=== PATIENT | female | born 1985 | race African-American/Black ===

== ENCOUNTER 2016-12-16 16:54 | Emergency (ER) | payer MEDICAID ==
--- NOTE | 2016-12-16 17:16 | EDM.PDOC ---
ED HPI ENT - General Stated Complaint: PT LT SIDE OF FACE SWOLLEN Time Seen by Provider: 12/16/16 17:03 - History of Present Illness INITIAL COMMENTS - FREE TEXT/NARRATIVE: History of present illness: [31-year-old female presents with three-day history of sinus headache, toothache , left ear pain. He tried [id number] sinus congestion without any relief. Does not have any nausea, vomiting fever chills sore throat, abdominal pain, n/v /d, dizziness, syncope or other pertinent symptoms. ] Review of systems: As per history of present illness and below otherwise all systems reviewed and negative. Past medical history: As per history of present illness and as reviewed below otherwise noncontributory. Surgical history: As per history of present illness and as reviewed below otherwise noncontributory. Social history: No reported history of drug or alcohol abuse. Family history: As per history of present illness and as reviewed below otherwise noncontributory. Physical exam: General: Well developed, well nourished in NAD HEENT: Atraumatic, normocephalic, pupils reactive, negative for conjunctival pallor or scleral icterus, mucous membranes moist, throat clear, neck supple, nontender, trachea midline. Frontal left sinus tenderness. Bilateral TM clear. Lungs: Clear to auscultation, breath sounds equal bilaterally, chest nontender. Heart: S1S2, regular, negative for clicks, rubs, or JVD. Abdomen: Soft, nondistended, nontender. Negative for masses or hepatosplenomegaly. Negative for costovertebral tenderness. Pelvis: Stable nontender. Genitourinary: Deferred. Rectal: Deferred. Extremities: Atraumatic, negative for cords or calf pain. Neurovascular unremarkable. Neuro: Awake, alert, oriented. Cranial nerves II through XII unremarkable. Cerebellum unremarkable. Motor and sensory unremarkable throughout. Exam nonfocal. Diagnostics: [] Therapeutics: [rocephin 1 gram IM x 1 ] Impression: [Sinusitis] Plan: Flonase, augmentin, mucinex follow up with PCP.] Definitive disposition and diagnosis as appropriate pending reevaluation and review of above. - Related Data Allergies/ADRs: Allergies Allergy/AdvReac Type Severity Reaction Status Date / Time No Known Allergies Allergy Verified 12/16/16 17:24 Home Meds: Home Meds Hydrochlorothiazide 1 tab PO DAILY 12/16/16 [History] ED ROS ENT - Review of Systems Review Of Systems: See Below (The history of present illness) ED EXAM, ENT - Physical Exam Exam: See Below (The history of present illness) Course - Vital Signs Last Recorded V/S: Last Vital Signs Temp 97.6 F 12/16/16 17:22 Pulse 67 12/16/16 17:22 Resp 18 12/16/16 17:22 BP 156/91 H 12/16/16 17:22 Pulse Ox 95 12/16/16 17:22 - Orders/Labs/Meds Orders: Active Orders 24 hr Category Date Time Status cefTRIAXone [Rocephin] 1,000 mg Med 12/16/16 17:50 Ordered Lidocaine 1% [Xylocaine-MPF 1%] 4 ml IM ONETIME Medication Orders Ceftriaxone Sodium 1,000 mg/ (Lidocaine HCl) 4 mls @ 4 mls/sec IM ONETIME ONE Stop: 12/16/16 17:51 Meds: Medications Generic Name Dose Route Start Last Admin Trade Name Lissette PRN Reason Stop Dose Admin Ceftriaxone Sodium 1,000 mg/ 4 mls @ 4 mls/sec 12/16/16 17:50 Lidocaine HCl IM 12/16/16 17:51 ONETIME ONE Departure - Departure Time of Disposition: 17:52 Disposition: Home, Self-Care 01 Condition: good Clinical Impression: Sinusitis Referrals: PCP,None [Primary Care Provider] - Additional Instructions: The following information is given to patients seen in the emergency department who are being discharged to home. This information is to outline your options for follow-up care. We provide all patients seen in our emergency department with a follow-up referral. The need for follow-up, as well as the timing and circumstances, are variable depending upon the specifics of your emergency department visit. If you don't have a primary care physician on staff, we will provide you with a referral. We always advise you to contact your personal physician following an emergency department visit to inform them of the circumstance of the visit and for follow-up with them and/or the need for any referrals to a consulting specialist. The emergency department will also refer you to a specialist when appropriate. This referral assures that you have the opportunity for follow-up care with a specialist. All of these measure are taken in an effort to provide you with optimal care, which includes your follow-up. Under all circumstances we always encourage you to contact your private physician who remains a resource for coordinating your care. When calling for follow-up care, please make the office aware that this follow-up is from your recent emergency room visit. If for any reason you are refused follow-up, please contact the [facility] Emergency Department at and asked to speak to the emergency department charge nurse. - My Orders Last 24 Hours: My Active Orders 12/16/16 17:50 cefTRIAXone [Rocephin] 1,000 mg Lidocaine 1% [Xylocaine-MPF 1%] 4 ml IM ONETIME - Assessment/Plan Last 24 Hours: My Active Orders 12/16/16 17:50 cefTRIAXone [Rocephin] 1,000 mg Lidocaine 1% [Xylocaine-MPF 1%] 4 ml IM ONETIME
[2016-12-16] MEDS ORDERED: cefTRIAXone 1,000 MG in Lidocaine 1% 4 ML IM ONE (17:50)
[2016-12-16 18:45] VITALS: BP 138/90
== END 2016-12-16 18:31 | disposition home or self-care (01) ==
LOC: MW.ED 16:54
DX: J32.9 Chronic sinusitis, unspecified (principal)
CPT/HCPCS: 96372; 99283; J0696

== ENCOUNTER 2016-12-20 07:57 | Emergency (ER) | payer MEDICAID ==
[2016-12-20] MEDS ORDERED: predniSONE 20 MG Tab PO ONE (08:40)
[2016-12-20] MEDS ORDERED: Ketorolac 60 MG/2 ML SDV IM ONE (08:40)
--- NOTE | 2016-12-20 09:20 | EDM.PDOC ---
ED HPI GENERAL MEDICAL PROBLEM - General Chief Complaint: General Stated Complaint: PAIN ON LEFT SIDE OF THE FACE Time Seen by Provider: 12/20/16 08:10 Source of Information: Reports: Patient History Limitations: Reports: No limitations - History of Present Illness INITIAL COMMENTS - FREE TEXT/NARRATIVE: HISTORY AND PHYSICAL: History of present illness: [31-year-old female with a past medical history of hypertension recently seen by Dr. Wyatt complaining of left facial pain. It was felt that the patient had left sided sinusitis and she was prescribed Augmentin., With which she has been compliant. Patient complains of persistent pain in the left base. She has no specific identifiable point tenderness. She states is not worse when she moves her jaw. Pain is not under her chin. She has no intraoral pain or tenderness the pain and tenderness is not in her left for head in the temporal artery distribution. Patient denies earache or headache. No fevers chills sweats or shaking chills. No nasal discharge or ear drainage. Patient has never had a chronic facial pain syndrome or herpes zoster Review of systems: As per history of present illness and below otherwise all systems reviewed and negative. Past medical history: As per history of present illness and as reviewed below otherwise noncontributory. Surgical history: As per history of present illness and as reviewed below otherwise noncontributory. Social history: No reported history of drug or alcohol abuse. Family history: As per history of present illness and as reviewed below otherwise noncontributory. Physical exam: Nontender TMJ. Nontender mastoid with normal pinnae EAC and TM. Nontender parotid and submandibular glands. No intraoral abnormality. While patient complains of pain in the left base there is no identifiable point tenderness. No facial or anterior cervical adenopathy HEENT: Atraumatic, normocephalic, pupils reactive, negative for conjunctival pallor or scleral icterus, mucous membranes moist, throat clear, neck supple, nontender, trachea midline. Lungs: Clear to auscultation, breath sounds equal bilaterally, chest nontender. Heart: S1S2, regular, negative for clicks, rubs, or JVD. Abdomen: Soft, nondistended, nontender. Negative for masses or hepatosplenomegaly. Negative for costovertebral tenderness. Pelvis: Stable nontender. Genitourinary: Deferred. Rectal: Deferred. Extremities: Atraumatic, negative for cords or calf pain. Neurovascular unremarkable. Neuro: Awake, alert, oriented. Cranial nerves II through XII unremarkable. Cerebellum unremarkable. Motor and sensory unremarkable throughout. Exam nonfocal. Diagnostics: [] Therapeutics: [] Impression: [] Plan: [Etiology of patient's pain is unclear. It is nonspecific left facial pain discussed with patient possibility of zoster prodrome. Also discussed the stability of evolving trigeminal neuralgia. Patient does not have temporal artery tenderness nor is her TMJ tender. No dental tenderness or visible intraoral abnormality patient is well-appearing in general and has a nonfocal exam. Supple neck with normal painless range of motion of the C-spine. Patient has no infectious prodrome. I discussed with her the use of NSAIDs and Tylenol as needed as well as recommending a short course of prednisone which may help. Patient agrees with this regimen and is aware of critical importance of close followup with her primary care Dr. No further workup or treatment indicated at this time. Patient agrees with outpatient followup and strict return precautions given Definitive disposition and diagnosis as appropriate pending reevaluation and review of above. 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 Left sided facial Pain Score (Numeric/FACES): 10 - Related Data Allergies Allergy/AdvReac Type Severity Reaction Status Date / Time No Known Allergies Allergy Verified 12/20/16 08:08 Home Meds: Home Meds Hydrochlorothiazide 12.5 mg PO DAILY 12/16/16 [History] Amoxicillin/Potassium Clav [Augmentin 875-125 Tablet] 1 each PO BID 12/20/16 [ History] Prednisone [IMW: predniSONE] 60 mg PO WITHBREAKFAST #21 tab 12/20/16 [Rx] Past Medical History - Past Health History Medical/Surgical History: Denies Medical/Surgical History HEENT History: Reports: None Cardiovascular History: Reports: Hypertension Respiratory History: Reports: None Gastrointestinal History: Reports: None Genitourinary History: Reports: None 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: 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 History: Reports: None Neurological History: Reports: None Psychiatric History: Reports: None Endocrine/Metabolic History: Reports: None Hematologic History: Reports: None Immunologic History: Reports: None Oncologic (Cancer) History: Reports: None Dermatologic History: Reports: None - Infectious Disease History Infectious Disease History: Reports: None - Past Surgical History Head Surgeries/Procedures: Reports: None HEENT Surgical History: Reports: None Cardiovascular Surgical History: Reports: None Respiratory Surgical History: Reports: None GI Surgical History: Reports: None Female Surgical History: Reports: None Endocrine Surgical History: Reports: None Neurological Surgical History: Reports: None 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 Surgical History: Reports: None Dermatological Surgical History: Reports: None Social & Family History - Family History Family Medical History: Noncontributory - Tobacco Use Smoking Status *Q: Never Smoker Second Hand Smoke Exposure: No - Caffeine Use Caffeine Use: Reports: None - Recreational Drug Use Recreational Drug Use: No ED ROS GENERAL - Review of Systems Review Of Systems: See Below (Per history of present illness) ED EXAM, GENERAL - Physical Exam Exam: See Below (Per history of present illness) Course - Vital Signs Last Recorded V/S: Last Vital Signs Temp 36.4 C 12/20/16 08:05 Pulse 78 12/20/16 09:23 Resp 16 12/20/16 09:23 BP 122/70 12/20/16 09:23 Pulse Ox 99 12/20/16 09:23 - Orders/Labs/Meds Orders: Active Orders 24 hr Category Date Time Status EKG 12 Lead [EKG Documentation Completion] [RC] STAT Care 12/20/16 09:15 Active Meds: Medications Discontinued Medications Generic Name Dose Route Start Last Admin Trade Name Freq PRN Reason Stop Dose Admin Ketorolac Tromethamine 60 mg 12/20/16 08:40 12/20/16 08:46 Toradol IM 12/20/16 08:41 60 mg ONETIME ONE Administration Prednisone 60 mg 12/20/16 08:40 12/20/16 08:47 Prednisone PO 12/20/16 08:41 60 mg ONETIME ONE Administration Departure - Departure Time of Disposition: 09:12 Disposition: Home, Self-Care 01 Condition: good Clinical Impression: Acute facial pain Prescriptions: Prednisone [IMW: predniSONE] 60 mg PO WITHBREAKFAST #21 tab Instructions: Medical Screening Exam Referrals: PCP,None [Primary Care Provider] - Forms: ED Department Discharge Additional Instructions: The following information is given to patients seen in the emergency department who are being discharged to home. This information is to outline your options for follow-up care. We provide all patients seen in our emergency department with a follow-up referral. The need for follow-up, as well as the timing and circumstances, are variable depending upon the specifics of your emergency department visit. If you don't have a primary care physician on staff, we will provide you with a referral. We always advise you to contact your personal physician following an emergency department visit to inform them of the circumstance of the visit and for follow-up with them and/or the need for any referrals to a consulting specialist. The emergency department will also refer you to a specialist when appropriate. This referral assures that you have the opportunity for follow-up care with a specialist. All of these measure are taken in an effort to provide you with optimal care, which includes your follow-up. Under all circumstances we always encourage you to contact your private physician who remains a resource for coordinating your care. When calling for follow-up care, please make the office aware that this follow-up is from your recent emergency room visit. If for any reason you are refused follow-up, please contact the [facility] Emergency Department at and asked to speak to the emergency department charge nurse. Is not clear what is causing your facial pain today but your findings do not suggest any bacterial infection. It is always possible to get pain before getting shingles. If in the next day or 2 you have all blisters in the area of your left face him that that would be suggestive of this diagnosis there is also a possibility it could be evolving trigeminal neuralgia which is a chronic pain syndrome originating in the trigeminal nerve that supplies each side of your face. Both of these diagnoses are things regarding which we would not typically observe anything abnormal on your examination. There is also a possibility that your facial pain is from another cause. Take 800 mg of ibuprofen every 6 hours and use [place] at bedtime if necessary for sleep. Follow up with your DrJer at the family practice clinic in 2-3 days for reevaluation and referral possibly to neurology for further workup as needed if your symptoms persist. Return immediately for new severe or worsening symptoms - My Orders Last 24 Hours: My Active Orders 12/20/16 09:15 EKG 12 Lead [EKG Documentation Completion] [RC] STAT - Assessment/Plan Last 24 Hours: My Active Orders 12/20/16 09:15 EKG 12 Lead [EKG Documentation Completion] [RC] STAT
[2016-12-20 09:32] VITALS: BP 122/70
== END 2016-12-20 09:23 | disposition home or self-care (01) ==
LOC: MW.ED 07:57
DX: R51 Headache (principal); I10 Essential (primary) hypertension; Z79.899 Other long term (current) drug therapy
CPT/HCPCS: 93005; 96372; 99283; A9270; J1885

== ENCOUNTER → 2017-01-05 | Outpatient (CLI) | payer MEDICAID ==
[2017-01-05 10:28] LABS: CHLORIDE,CL 107 mmol/L (98-110); SODIUM,NA 140 mmol/L (136-146)
== END ==
LOC: MW.CHFP 09:43
PROVIDERS: ATTEND Nurse Practitioner Family
DX: I10 Essential (primary) hypertension (principal)
CPT/HCPCS: 36415; 80053; 80061

== ENCOUNTER 2017-12-23 20:03 | Emergency (ER) | payer BC, MEDICAID ==
[2017-12-23] MEDS ORDERED: Ondansetron 4 MG/2 ML SDV IVPUSH ONE (20:54)
[2017-12-23] MEDS ORDERED: Lactated Ringers 1,000 ML IV ONE (20:54)
--- NOTE | 2017-12-23 21:02 | EDM.PDOC ---
ED HPI GENERAL MEDICAL PROBLEM - General Chief Complaint: Gastrointestinal Problem Stated Complaint: NAUSEA/DIZZY Time Seen by Provider: 12/23/17 20:45 Source of Information: Reports: Patient History Limitations: Reports: No Limitations - History of Present Illness INITIAL COMMENTS - FREE TEXT/NARRATIVE: HISTORY AND PHYSICAL: History of present illness: [Patient comes to the emergency room complaining of diarrhea and nausea and vomiting. Her symptoms started this morning with several episodes of loose stools. This afternoon she developed vomiting. She's been unable to keep down any food or fluids today. She has not taken any medication for her symptoms. She has not had any fever or chills. She complains of muscle aches and pains to her upper and lower extremities and back. She denies abdominal pain. No burning with urination or hematuria. No blood in stools or emesis. She admits to a headache but she describes it as "slight". Nausea is 10/10. Sent home from work today due to her symptoms. Last episode of vomiting and diarrhea was prior to being seen in the ER.] Review of systems: As per history of present illness and below otherwise all systems reviewed and negative. Past medical history: As per history of present illness and as reviewed below otherwise noncontributory. Surgical history: As per history of present illness and as reviewed below otherwise noncontributory. Social history: No reported history of drug or alcohol abuse. Family history: As per history of present illness and as reviewed below otherwise noncontributory. Physical exam: HEENT: Atraumatic, normocephalic. Oral mucous membranes are mildly dry. Throat is clear, neck supple, no lymphadenopathy. Lungs: Clear to auscultation, breath sounds equal bilaterally. Wheezing crackles or rales. Heart: S1S2, regular rate and rhythm. Abdomen: Sounds are normoactive throughout. Soft, nondistended, nontender. Negative for masses or rebound. Negative for costovertebral tenderness. Pelvis: Stable nontender. Genitourinary: Deferred. Rectal: Deferred. Extremities: Atraumatic, no pain with palpation of her extremities. Neurovascular unremarkable. Neuro: Awake, alert, oriented. Motor and sensory unremarkable throughout. Exam nonfocal. Therapeutics: [1 L LR, Zofran 4 mg IV, Toradol 30mg IV] Impression: [nausea and vomiting] Plan: [Will start fluids and Zofran. Nausea improves considerably with this medication. headache is still at 7 out of 10. Toradol 30 mg given IV. When nausea improves will attempt po challenge. If patient tolerates po, will discharge to home. [facility] Zofran ODT 4 mg#10 sig one by mouth every 8 hours as needed for nausea and vomiting 0 refills. Pt tolerates po and is discharged to home. ] Definitive disposition and diagnosis as appropriate pending reevaluation and review of above. 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: 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 History: Reports: None Neurological History: Reports: None Psychiatric History: Reports: None Endocrine/Metabolic History: Reports: None Hematologic History: Reports: None Immunologic History: Reports: None Oncologic (Cancer) History: Reports: None Dermatologic History: Reports: None - Infectious Disease History Infectious Disease History: Reports: Chicken Pox - Past Surgical History Head Surgeries/Procedures: Reports: None HEENT Surgical History: Reports: None Cardiovascular Surgical History: Reports: None Respiratory Surgical History: Reports: None GI Surgical History: Reports: None Female Surgical History: Reports: None Endocrine Surgical History: Reports: None Neurological Surgical History: Reports: None 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 Surgical History: Reports: None Dermatological Surgical History: Reports: None Social & Family History - Family History Family Medical History: Noncontributory - Tobacco Use Smoking Status *Q: Never Smoker Second Hand Smoke Exposure: No - Caffeine Use Caffeine Use: Reports: Soda - Recreational Drug Use Recreational Drug Use: No ED ROS GENERAL - Review of Systems Review Of Systems: ROS reveals no pertinent complaints other than HPI. ED EXAM, GI/ABD - Physical Exam Exam: See Below Course - Vital Signs Last Recorded V/S: Last Vital Signs Temp 98.3 F 12/23/17 22:27 Pulse 107 H 12/23/17 22:27 Resp 18 12/23/17 22:27 BP 151/81 H 12/23/17 22:27 Pulse Ox 100 12/23/17 22:27 - Orders/Labs/Meds Meds: Medications Discontinued Medications Generic Name Dose Route Start Last Admin Trade Name Lissette PRN Reason Stop Dose Admin Lactated Ringer's 1,000 mls @ 999 mls/hr 12/23/17 20:54 12/23/17 21:11 Ringers, Lactated IV 12/23/17 21:54 999 mls/hr .BOLUS ONE Administration Ketorolac Tromethamine 30 mg 12/23/17 21:46 12/23/17 21:58 Toradol IVPUSH 12/23/17 21:47 30 mg ONETIME ONE Administration Ondansetron HCl 4 mg 12/23/17 20:54 12/23/17 21:11 Zofran IVPUSH 12/23/17 20:55 4 mg ONETIME ONE Administration Departure - Departure Time of Disposition: 22:00 Disposition: Home, Self-Care 01 Condition: Good Clinical Impression: Nausea and vomiting in adult - Discharge Information Instructions: Nausea and Vomiting, Adult, [id number] Referrals: Addis Rivera, HAIR MACHINE OPERATOR [Primary Care Provider] - Forms: ED Department Discharge Additional Instructions: The following information is given to patients seen in the emergency department who are being discharged to home. This information is to outline your options for follow-up care. We provide all patients seen in our emergency department with a follow-up referral. The need for follow-up, as well as the timing and circumstances, are variable depending upon the specifics of your emergency department visit. If you don't have a primary care physician on staff, we will provide you with a referral. We always advise you to contact your personal physician following an emergency department visit to inform them of the circumstance of the visit and for follow-up with them and/or the need for any referrals to a consulting specialist. The emergency department will also refer you to a specialist when appropriate. This referral assures that you have the opportunity for follow-up care with a specialist. All of these measure are taken in an effort to provide you with optimal care, which includes your follow-up. Under all circumstances we always encourage you to contact your private physician who remains a resource for coordinating your care. When calling for follow-up care, please make the office aware that this follow-up is from your recent emergency room visit. If for any reason you are refused follow-up, please contact the [facility] emergency department at and asked to speak to the emergency department charge nurse. [facility] [address] [place] [id number] All up with her local primary care provider at the clinic listed above in 48-72 hours. Push fluids, use Zofran as needed for nausea. Return to ER as needed as discussed.
[2017-12-23] MEDS ORDERED: Ketorolac 30 MG/ML SDV IVPUSH ONE (21:46)
[2017-12-24 00:43] VITALS: BP 151/81
== END 2017-12-23 22:27 | disposition home or self-care (01) ==
LOC: MW.ED 20:03
DX: R11.2 Nausea with vomiting, unspecified (principal); R19.7 Diarrhea, unspecified; I10 Essential (primary) hypertension; Z79.899 Other long term (current) drug therapy
CPT/HCPCS: 96365; 96375; 99283; J1885; J2405; J7120

== ENCOUNTER 2018-05-16 19:50 | Emergency (ER) | payer BC ==
--- NOTE | 2018-05-16 20:09 | EDM.PDOC ---
ED HPI GENERAL MEDICAL PROBLEM - General Chief Complaint: Gastrointestinal Problem Stated Complaint: VOMITNG AND DIARRHEA Time Seen by Provider: 05/16/18 20:09 Source of Information: Reports: Patient History Limitations: Reports: No Limitations - History of Present Illness INITIAL COMMENTS - FREE TEXT/NARRATIVE: HISTORY AND PHYSICAL: History of present illness: 33-year-old female presenting to emergency department with chief complained of nausea and vomiting with associated stomach pain 1 day with past medical history of hypertension. Patient states that around noon today she began to have nausea and vomiting. States that she has thrown up approximately 4-5 times. No hematemesis. States she is unable to keep anything down. She has not urinated in 2 days. She also reports associated diarrhea 7 times today no bloody stool or dark tarry stool. She has mild generalized abdominal pain as well as a headache. She has felt feverish with chills but denies any sore throat, cough, chest pain, palpitations , shortness of breath, syncopal episodes, or focal neurologic deficits. She does have a history of hypertension states she has not been able to keep down any of her blood pressure medications. She has no known drug allergies. On exam generalized abdominal pain but exquisite pain in right lower quadrant. Nondistended or rigid. CBC, CMP, UA, lipase, hCG were all unremarkable. CT abdomen and pelvis did show questionable right-sided hydrosalpinx, so a pelvic ultrasound was ordered at 2220 Review of systems: As per history of present illness and below otherwise all systems reviewed and negative. Past medical history: As per history of present illness and as reviewed below otherwise noncontributory. Surgical history: As per history of present illness and as reviewed below otherwise noncontributory. Social history: No reported history of drug or alcohol abuse. Family history: As per history of present illness and as reviewed below otherwise noncontributory. Physical exam: HEENT: Atraumatic, normocephalic, pupils reactive, negative for conjunctival pallor or scleral icterus, mucous membranes moist, throat clear, neck supple, nontender, trachea midline. Lungs: Clear to auscultation, breath sounds equal bilaterally, chest nontender. Heart: S1S2, regular, negative for clicks, rubs, or JVD. Abdomen: Soft, nondistended, generalized abd pain on palp with specific RLQ pain. Negative for masses or hepatosplenomegaly. Negative for costovertebral tenderness. Pelvis: Stable nontender. Genitourinary: Deferred. Rectal: Deferred. Extremities: Atraumatic, negative for cords or calf pain. Neurovascular unremarkable. Neuro: Awake, alert, oriented. Cranial nerves II through XII unremarkable. Cerebellum unremarkable. Motor and sensory unremarkable throughout. Exam nonfocal. Diagnostics: CBC, CMP, UA/UC, lipase, hCG, CT abdomen pelvis, Pelvic US Therapeutics: 1 L normal saline 1, 8 mg Zofran IV 1, 40 meQ KCL IV, 1 L LR IV Impression: Nausea with vomiting Diarrhea Mild dehydration Abdominal pain Hypokalemia most likely secondary to nausea and vomiting Viral gastroenteritis Plan: Please see above H&P. We did order a pelvic ultrasound which was unremarkable and showed no evidence of hydrosalpinx. Patient mostly has viral gastroenteritis and hypokalemia secondary to nausea with vomiting. This was explained to the patient and she was discharged in good condition with a prescription for Zofran to be taken as needed for her nausea and vomiting. She was instructed to follow-up with her primary care provider and return to emergency department if she had any new or worsening symptoms. Definitive disposition and diagnosis as appropriate pending reevaluation and review of above. Lower Abd Pain Score (Numeric/FACES): 10 - Related Data Allergies Allergy/AdvReac Type Severity Reaction Status Date / Time No Known Allergies Allergy Verified 05/16/18 20:05 Home Meds: Home Meds hydroCHLOROthiazide [Hydrochlorothiazide] 12.5 mg PO DAILY 12/16/16 [History] Past Medical History - Past Health History Medical/Surgical History: Denies Medical/Surgical History HEENT History: Reports: None Cardiovascular History: Reports: Hypertension Respiratory History: Reports: None Gastrointestinal History: Reports: None Genitourinary History: Reports: None BRANCHER History: Reports: 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 History: Reports: None Neurological History: Reports: None Psychiatric History: Reports: None Endocrine/Metabolic History: Reports: None Hematologic History: Reports: None Immunologic History: Reports: None Oncologic (Cancer) History: Reports: None Dermatologic History: Reports: None - Infectious Disease History Infectious Disease History: Reports: Chicken Pox - Past Surgical History Head Surgeries/Procedures: Reports: None HEENT Surgical History: Reports: None Cardiovascular Surgical History: Reports: None Respiratory Surgical History: Reports: None GI Surgical History: Reports: None Female Surgical History: Reports: None Endocrine Surgical History: Reports: None Neurological Surgical History: Reports: None 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 Surgical History: Reports: None Dermatological Surgical History: Reports: None Social & Family History - Family History Family Medical History: Noncontributory - Tobacco Use Smoking Status *Q: Never Smoker - Caffeine Use Caffeine Use: Reports: Coffee - Recreational Drug Use Recreational Drug Use: No ED ROS GENERAL - Review of Systems Review Of Systems: ROS reveals no pertinent complaints other than HPI. ED EXAM, GENERAL - Physical Exam Exam: See Below Course - Vital Signs Last Recorded V/S: Last Vital Signs Temp 97.7 F 05/16/18 20:02 Pulse 96 05/16/18 23:37 Resp 18 05/16/18 23:37 BP 139/96 H 05/16/18 23:37 Pulse Ox 98 05/16/18 20:02 - Orders/Labs/Meds Orders: Active Orders 24 hr Category Date Time Status Abdomen Pelvis w Cont [CT] Stat Exams 05/16/18 20:20 Taken Pelvis Non OB Comp [US] Stat Exams 05/16/18 22:21 Taken CULTURE URINE [RM] Stat Lab 05/16/18 20:20 Ordered UA W/MICROSCOPIC [URIN] Stat Lab 05/16/18 20:20 Ordered Potassium Chloride 40 meq Med 05/16/18 22:15 Active Dextrose 5%-0.9% NaCl [Dextrose 5%-Normal Saline] 1,000 ml IV ASDIRECTED Sodium Chloride 0.9% [Saline Flush] Med 05/16/18 20:20 Active 10 ml FLUSH ASDIRECTED PRN Sodium Chloride 0.9% [Saline Flush] Med 05/16/18 20:20 Active 2.5 ml FLUSH ASDIRECTED PRN Sodium Chloride 0.9% [Saline Flush] Med 05/16/18 20:20 Active 2.5 ml FLUSH ASDIRECTED PRN Saline Lock Insert [OM.PC] Stat Oth 05/16/18 20:20 Ordered Medication Orders Potassium Chloride 40 meq/ (Dextrose/Sodium Chloride) 1,020 mls @ 999 mls/hr IV ASDIRECTED TAD Last Admin: 05/16/18 22:15 Dose: 999 mls/hr Sodium Chloride (Saline Flush) 2.5 ml FLUSH ASDIRECTED PRN PRN Reason: Keep Vein Open Sodium Chloride (Saline Flush) 10 ml FLUSH ASDIRECTED PRN PRN Reason: Keep Vein Open Sodium Chloride (Saline Flush) 2.5 ml FLUSH ASDIRECTED PRN PRN Reason: Keep Vein Open Labs: Laboratory Tests 05/16/18 05/16/18 05/16/18 Range/Units 20:10 20:10 20:10 WBC 9.55 (4.0-11.0) K/uL RBC 4.86 (4.30-5.90) M/uL Hgb 11.8 L (12.0-16.0) g/dL Hct 34.7 L (36.0-46.0) % MCV 71.4 L (80.0-98.0) fL MCH 24.3 L (27.0-32.0) pg MCHC 34.0 (31.0-37.0) g/dL RDW Std Deviation 41.9 (28.0-62.0) fl RDW Coeff of Bailee 16 H (11.0-15.0) % Plt Count 338 (150-400) K/uL MPV 9.20 (7.40-12.00) fL Neut % (Auto) 72.0 (48.0-80.0) % Lymph % (Auto) 18.1 (16.0-40.0) % [place] % (Auto) 9.1 (0.0-15.0) % Eos % (Auto) 0.6 (0.0-7.0) % Baso % (Auto) 0.2 (0.0-1.5) % Neut # (Auto) 6.9 H (1.4-5.7) K/uL Lymph # (Auto) 1.7 (0.6-2.4) K/uL [place] # (Auto) 0.9 H (0.0-0.8) K/uL Eos # (Auto) 0.1 (0.0-0.7) K/uL Baso # (Auto) 0.0 (0.0-0.1) K/uL Nucleated RBC % 0.0 /100WBC Nucleated RBCs # 0 K/uL Sodium 138 (136-145) mmol/L Potassium 3.0 L (3.5-5.1) mmol/L Chloride 103 (98-107) mmol/L Carbon Dioxide 27.8 (21.0-32.0) mmol/L BUN 8 (7.0-18.0) mg/dL Creatinine 0.7 (0.6-1.0) mg/dL Est Cr Clr Drug Dosing 84.65 mL/min Estimated GFR (MDRD) > 60.0 ml/min Glucose 88 (74-106) mg/dL Calcium 9.1 (8.5-10.1) mg/dL Total Bilirubin 0.3 (0.2-1.0) mg/dL AST 12 L (15-37) IU/L ALT 14 (14-63) IU/L Alkaline Phosphatase 69 (46-116) U/L Total Protein 8.3 H (6.4-8.2) g/dL Albumin 3.6 (3.4-5.0) g/dL Globulin 4.7 H (2.0-3.5) g/dL Albumin/Globulin Ratio 0.8 L (1.3-2.8) Lipase 126 (73-393) U/L HCG, Qual NEGATIVE (NEG) Meds: Medications Generic Name Dose Route Start Last Admin Trade Name Freq PRN Reason Stop Dose Admin Potassium Chloride 40 meq/ 1,020 mls @ 999 mls/hr 05/16/18 22:15 05/16/18 22: 15 Dextrose/Sodium Chloride IV 999 mls/hr ASDIRECTED TAD Administration Sodium Chloride 2.5 ml 05/16/18 20:20 Saline Flush FLUSH ASDIRECTED PRN Keep Vein Open Sodium Chloride 10 ml 05/16/18 20:20 Saline Flush FLUSH ASDIRECTED PRN Keep Vein Open Sodium Chloride 2.5 ml 05/16/18 20:20 Saline Flush FLUSH ASDIRECTED PRN Keep Vein Open Discontinued Medications Generic Name Dose Route Start Last Admin Trade Name Freq PRN Reason Stop Dose Admin Sodium Chloride 1,000 mls @ 999 mls/hr 05/16/18 20:20 05/16/18 20:28 Normal Saline IV 05/16/18 21:20 999 mls/hr BOLUS ONE Administration Iopamidol 100 ml 05/16/18 21:43 05/16/18 21:44 Isovue Multipack-370 (76%) IVPUSH 05/16/18 21:44 100 ml ONETIME STA Administration Ondansetron HCl 8 mg 05/16/18 20:20 08/27/18 20:28 Zofran IVPUSH 05/16/18 20:21 8 mg ONETIME ONE Administration Departure - Departure Time of Disposition: 23:48 Disposition: Home, Self-Care 01 Condition: Good Clinical Impression: Viral gastroenteritis, Hypokalemia - Discharge Information Referrals: PCP,None [Primary Care Provider] - Forms: ED Department Discharge Additional Instructions: My general discharge The following information is given to patients seen in the emergency department who are being discharged to home. This information is to outline your options for follow-up care. We provide all patients seen in our emergency department with a follow-up referral. The need for follow-up, as well as the timing and circumstances, are variable depending upon the specifics of your emergency department visit. If you don't have a primary care physician on staff, we will provide you with a referral. We always advise you to contact your personal physician following an emergency department visit to inform them of the circumstance of the visit and for follow-up with them and/or the need for any referrals to a consulting specialist. The emergency department will also refer you to a specialist when appropriate. This referral assures that you have the opportunity for follow-up care with a specialist. All of these measure are taken in an effort to provide you with optimal care, which includes your follow-up. Under all circumstances we always encourage you to contact your private physician who remains a resource for coordinating your care. When calling for follow-up care, please make the office aware that this follow-up is from your recent emergency room visit. If for any reason you are refused follow-up, please contact the [facility] Emergency Department at and asked to speak to the emergency department charge nurse. [facility] [address] [place] [id number] [id number] Continue to push fluids and take Zofran as needed for nausea as prescribed. Follow-up with primary care provider as we discussed. Return to emergency department if any new or worsening symptoms. - My Orders Last 24 Hours: My Active Orders 05/16/18 20:20 Abdomen Pelvis w Cont [CT] Stat CULTURE URINE [RM] Stat UA W/MICROSCOPIC [URIN] Stat Sodium Chloride 0.9% [Saline Flush] 10 ml FLUSH ASDIRECTED PRN Sodium Chloride 0.9% [Saline Flush] 2.5 ml FLUSH ASDIRECTED PRN Sodium Chloride 0.9% [Saline Flush] 2.5 ml FLUSH ASDIRECTED PRN Saline Lock Insert [OM.PC] Stat 05/16/18 22:15 Potassium Chloride 40 meq Dextrose 5%-0.9% NaCl [Dextrose 5%-Normal Saline] 1, 000 ml IV ASDIRECTED 05/16/18 22:21 Pelvis Non OB Comp [US] Stat - Assessment/Plan Last 24 Hours: My Active Orders 05/16/18 20:20 Abdomen Pelvis w Cont [CT] Stat CULTURE URINE [RM] Stat UA W/MICROSCOPIC [URIN] Stat Sodium Chloride 0.9% [Saline Flush] 10 ml FLUSH ASDIRECTED PRN Sodium Chloride 0.9% [Saline Flush] 2.5 ml FLUSH ASDIRECTED PRN Sodium Chloride 0.9% [Saline Flush] 2.5 ml FLUSH ASDIRECTED PRN Saline Lock Insert [OM.PC] Stat 05/16/18 22:15 Potassium Chloride 40 meq Dextrose 5%-0.9% NaCl [Dextrose 5%-Normal Saline] 1, 000 ml IV ASDIRECTED 05/16/18 22:21 Pelvis Non OB Comp [US] Stat
[2018-05-16] MEDS ORDERED: Ondansetron 4 MG/2 ML SDV IVPUSH ONE (20:20)
[2018-05-16] MEDS ORDERED: Sodium Chloride 0.9% 2.5 ML Syringe FLUSH PRN ×2 (20:20)
[2018-05-16] MEDS ORDERED: Sodium Chloride 0.9% 1,000 ML IV ONE (20:20)
[2018-05-16] MEDS ORDERED: Sodium Chloride 0.9% 10 ML Syringe FLUSH PRN (20:20)
[2018-05-16 20:41] LABS: CHLORIDE,CL 103 mmol/L (98-107); SODIUM,NA 138 mmol/L (136-145)
[2018-05-16] MEDS ORDERED: Potassium Chloride 40 MEQ in Dextrose 5%-Lactated Ringers 1,000 ML IV SCH (21:15)
[2018-05-16] MEDS ORDERED: Iopamidol 755 MG/ML 500 ML Multipack Bottle IVPUSH STA (21:43)
[2018-05-17 01:45] VITALS: BP 145/100
--- NOTE | 2018-05-17 10:20 | CT ---
EXAM DATE: 05/16/18 PATIENT'S AGE: 33 Patient: SOLEDAD RODRIGES Facility: [place], [place] Site . Site : 1985 Study: CT Abdomen/Pelvis w cont [id number]/27/2018 9:48:54 PM Ordering Physician: Galileo Rose Final Report: INDICATION: RLQ PAIN FOR ONE DAY. PT STATES N/V/D AND INABILITY TO URINATE FOR [address] ABDOMEN AND PELVIS WITH CONTRAST TECHNIQUE: Multidetector CT imaging was performed through the abdomen and pelvis following intravenous contrast administration using 100 mL Isovue 370. Coronal and sagittal reconstructions were generated. COMPARISON: None. FINDINGS: Lower chest: Lung bases are clear. Liver: Within normal limits. Gallbladder and bile ducts: No gallbladder wall thickening or calcified gallstones. No biliary dilation identified. Pancreas: Unremarkable. Spleen: Normal. Adrenals: No nodules or masses. Kidneys, ureters, and urinary bladder: No renal masses or hydronephrosis. No bladder mass or definite wall thickening. Gastrointestinal tract: Normal caliber bowel without wall thickening. The appendix is normal. Vascular structures: Normal for age. Peritoneum: No free air, abscess, or significant free fluid. Lymph nodes: No pathologically enlarged nodes identified. Reproductive organs: Suggestion of fluid-attenuation serpiginous tubular structure adjacent to the right ovary, possibly representing hydrosalpinx. No definite abnormalities of the uterus or ovaries. Probable corpus luteum within the right ovary. Bones: Normal for age. IMPRESSION: 1. Question of mild right-sided hydrosalpinx. Consider pelvic ultrasound for further evaluation. 2. No other intra-abdominal abnormality identified. Normal appendix. JESSICA VARMA MD [employer] Dictated by Neal Varma MD @ 05/16/2018 9:59:55 PM Dictated by: Neal Varma MD @ 05/16/2018 22:01:08 (Electronic Signature) Report Signed by Proxy. [facility] HOSPITALK[facility]
--- NOTE | 2018-05-17 10:23 | US ---
EXAM DATE: 05/16/18 PATIENT'S AGE: 33 Patient: SOLEDAD RODRIGES Facility: [place], [place] Site . Site : 1985 Study: US Pelvis [id number]/16/[id number] 11:22:49 PM Ordering Physician: Galileo Rose Final Report: INDICATION: Right-sided pelvic pain TECHNIQUE: Ultrasound pelvis transvaginal only. COMPARISON: CT scan abdomen pelvis 05/16/2018 FINDINGS: Uterus: 8.6 centimeter x 5.3 centimeter x 5.8 centimeter. Normal echotexture of the myometrium. No masses. Endometrium: Transvaginal imaging was performed to better evaluate the endometrium. 15 mm in thickness. No sign of endometrial mass or fluid. Right ovary: 3.4 centimeter x 3.5 centimeter x 1.6 centimeter. 2.0 centimeter probable collapsing cyst Normal arterial and venous blood flow. Left ovary: 2.2 centimeter x 1.2 centimeter x 2.2 centimeter. No ovarian or adnexal masses. Normal arterial and venous blood flow. Cul-de-sac: Small a moderate amount of free fluid. Free fluid. IMPRESSION: 2.0 centimeter probable collapsing right ovarian cyst. Small or moderate amount of free fluid. No definitive evidence for hydrosalpinx. Dictated by Rio Abad MD @ 05/16/2018 11:40:26 PM Dictated by: Rio Abad MD @ 05/16/2018 23:40:38 (Electronic Signature) Report Signed by Proxy. SEAN
== END 2018-05-17 01:10 | disposition home or self-care (01) ==
LOC: MW.ED 19:50
DX: A08.4 Viral intestinal infection, unspecified (principal); E87.6 Hypokalemia; I10 Essential (primary) hypertension; Z79.899 Other long term (current) drug therapy
CPT/HCPCS: 36415; 74177; 76856; 80053; 83690; 84703; 85025; 96361; 96365; 96375; 99284; J2405; J3480; J7040; J7042; Q9967; 99283